=== PATIENT | male | born 1945 | race Caucasian/White ===

== ENCOUNTER → 2020-10-04 14:47 | Outpatient (CLI) | payer OTHER, SELFPAY ==
--- NOTE | 2020-10-04 | DI.ECHO.S_ITS ---
[facility] +---------+ : : [address] : [place] [place] : : : : [id number] : : : : Phone: [phone]---------+ Echocardiogram Report + + :Name: AUNDREA FLORES Study Date: 10/04/2020 Height: 68 in : :[facility] ReadingLocation: Weight: 300 lb : : Gender: Male BSA: 2.4 m2 : :: 1945 Age: 75 yrs BP: 143/69 mmHg: :Reason For Study: Congestive heart failure : :Ordering Physician: LOUIE, : :APPLE Performed By: Maria Dolores Roblero : :Referring: APPLE PALMA : + + Interpretation Summary 1) Normal left ventricular size, thickness, wall motion, and systolic function (EF 60-65%). 2) Mildly enlarged right ventricular size with normal function. 3) Diastolic parameters suggest a pseudonormalization pattern, consistent with probable elevated filling pressures. 4) No significant valvular abnormalities. 5) The IVC is dilated (diameter is greater than 2.1 cm) and it collapses less than 50% with a sniff. This suggests a high right atrial pressure of 15 mm Hg. 6) Compared to the Echo done 07/25/2020, no significant change. Procedure: A two-dimensional transthoracic echocardiogram with color flow and Doppler was performed. The study quality was technically difficult. Comparison is made with the echocardiogram of 07/25/2020. A contrast injection of Definity was performed to improve assessment of LV function. Contrast was injected into an intravenous site in the left arm. Patient denied any symptoms after the use of Definity. The patient was in sinus rhythm with heart rates between 68-77 bpm during the exam. Left Ventricle: The left ventricle is normal in size. There is mild-moderate concentric left ventricular hypertrophy. Proximal septal thickening is noted. The ejection fraction is estimated to be 60-65%. Left ventricular systolic function appears normal without focal wall motion abnormalities. Diastolic parameters suggest a pseudonormalization pattern, consistent with probable elevated filling pressures. Right Ventricle: The right ventricle is mildly dilated. The right ventricular systolic function is normal. Atria: Both atria are normal in size. There is no Doppler evidence for an interatrial shunt. Mitral Valve: The mitral valve leaflets appear borderline thickened, but open well. There is mild mitral annular calcification. There is trace mitral regurgitation. Aortic Valve: The aortic valve is trileaflet. The aortic valve opens well. There is no aortic valve stenosis. No aortic regurgitation is present. Tricuspid Valve: The tricuspid valve is normal in structure and function. There is a trace or physiologic amount of tricuspid regurgitation. Pulmonary artery pressures cannot be estimated because of the lack of a measurable TR jet velocity but the IVC suggests a CVP of around 15 mmHg. Pulmonic Valve: The pulmonic valve leaflets are thin and pliable; valve motion is normal. There is no pulmonic valvular regurgitation. Great Vessels: The aortic root is normal size. The ascending aorta is at the upper limits of normal in size. The IVC is dilated (diameter is greater than 2.1 cm) and it collapses less than 50% with a sniff. This suggests a high right atrial pressure of 15 mm Hg. Pericardium/ Pleura There is no pericardial effusion. There is no pleural effusion. MMode/2D Measurements & Calculations LVIDd: 4.5 cm LVOT diam: 2.0 cm LVIDs: 3.0 cm Ao root diam: 3.7 cm FS: 33.6 % asc Aorta Diam: 3.9 cm IVSd: 1.4 cm LVPWd: 1.5 cm LV patel. diameter/BSA (cm/m^2): 1.8 LV sys. diameter/BSA (cm/m^2): 1.2 LA A2 area: 21.4 cm2 RA long axis: 4.9 cm LA A4 area: 21.4 cm2 RA area: 17.1 cm2 LA length (vol): 5.0 cm RA vol: 51.0 ml LA vol: 77.9 ml RA : 21.0 ml/m2 LA vol index: 32.1 ml/m2 IVC diam: 2.8 cm RVD1 (basal): 4.7 cm TAPSE: 2.6 cm Doppler Measurements & Calculations Ao V2 max: 128.0 cm/sec LVOT Max Frankie: 81.1 cm/sec Ao V2 mean: 97.7 cm/sec LV V1 max P.6 mmHg Ao max P.6 mmHg LV V1 VTI: 18.7 cm Ao mean P.1 mmHg SHRADDHA(I,D): 2.0 cm2 Ao V2 VTI: 29.0 cm SHRADDHA(V,D): 1.9 cm2 sev ratio: 0.64 SHRADDHA indexed to BSA (cm^2/m^2): 0.81 MV E max frankie: 113.7 cm/sec PA V2 max: 84.3 cm/sec MV A max frankie: 124.3 cm/sec PA V2 mean: 58.0 cm/sec MV E/A: 0.91 PA mean P.6 mmHg Med Peak E' Frankie: 5.8 cm/sec PA pr(Accel): 29.3 mmHg E/E' med: 19.6 Lat Peak E' Frankie: 6.4 cm/sec E/E' lat: 17.8 E/e' average: 18.7 MV dec time: 0.30 sec SV(LVOT): 57.1 ml Reading Physician:04:48 PM
== END ==
PROVIDERS: Referring Provider Neuromusculoskeletal Medicine, Sports Medicine; Visit Provider Neuromusculoskeletal Medicine, Sports Medicine
DX: I50.9 Heart failure, unspecified (principal)
CPT/HCPCS: C8929; Q9957